=== PATIENT | female | born 1995 | race Caucasian/White ===

== ENCOUNTER → 2019-06-14 17:01 | Outpatient (CLI) | payer SELFPAY ==
[2019-06-14 12:46] VITALS: BMI 21.4
[2019-06-14 21:30] LABS: Chlamydia Trachomatis by PCR Negative (Negative); Neisserai gonorrhoeae by PCR Negative (Negative); Probe Check PASS; Sample Adequacy Control PASS; Specimen Processing Control PASS
[2019-07-10 15:40] LABS: HPV Reflexed? NOT INDICATED
== END ==
PROVIDERS: Referring Provider Obstetrics & Gynecology; Visit Provider Obstetrics & Gynecology
DX: Z34.80 Encounter for supervision of other normal pregnancy, unspecified trimester (principal); Z12.4 Encounter for screening for malignant neoplasm of cervix
CPT/HCPCS: 87086; 87491; 87591; 88175; G0145

== ENCOUNTER → 2019-08-08 09:57 | Outpatient (CLI) | payer SELFPAY ==
[2019-07-12 11:28] VITALS: BMI 21.4
[2019-08-08 11:14] LABS: Absolute Lymphocyte Count 1.37 X10^3/uL (0.83-4.51); Absolute Neutrophil Count 5.9 X10^3/uL (2.0-7.7); Basophil# 0.03 X10^3/uL; Basophil% 0.4 % (0-1); Eosinophil# 0.03 X10^3/uL; Eosinophils% 0.4 % (0-5); Hematocrit 33.2 % (37-47); Hemoglobin 10.6 g/dL (12.0-15.0); Lymphocyte # 1.37 X10^3/ul (4.0); Lymphocyte % 17.5 % (19-41); Mean Corp Hgb Conc 31.9 g/dL (32-36); Mean Corpuscular Hgb 27.5 pg (27.0-32.0); Mean Platelet Vol. 9.8 fl (6.2-12.0); Monocyte# 0.45 X10^3/uL; Monocyte% 5.7 % (0-10); NRBC Flagged by Analyzer 0 % (0-5); Neutrophil # 5.91 X10^3/uL (2.7-7.7); Neutrophil % 75.5 % (47-70); Platelet Count 277 K/mm3 (150-450); RBC Distribution Width SD 43.5 fl (35.1-43.9); Red Blood Count 3.86 M/mm3 (4.2-5.4); White Blood Count 7.8 K/mm3 (4.4-11.0)
[2019-08-08 12:28] LABS: HIV - WCH Non-Reactive (Nonreactive); Rubella IgG 174.1 IU/mL
[2019-08-09 02:20] LABS: Rapid Plasmin Reagin (RPR) NONREACTIVE (NONREACTIVE)
== END ==
PROVIDERS: Referring Provider Obstetrics & Gynecology; Visit Provider Obstetrics & Gynecology
DX: Z34.80 Encounter for supervision of other normal pregnancy, unspecified trimester (principal)
CPT/HCPCS: 36415; 85025; 86592; 86703; 86762; 86850; 86900; 86901

== ENCOUNTER → 2019-08-17 07:57 | Outpatient (CLI) | payer SELFPAY ==
[2019-07-12 11:28] VITALS: BMI 21.4
[2019-08-08 10:32] VITALS: BMI 21.4
--- NOTE | 2019-08-17 08:00 | US_ITS ---
STUDY: SECOND AND THIRD TRIMESTER OBSTETRICAL ULTRASOUND REASON FOR EXAM: Female, 24 years old . anatomy. LMP: March 27, 2019. TECHNIQUE: Transabdominal and Transvaginal TECHNICAL QUALITY: Adequate. PRIOR ULTRASOUND: None. FINDINGS: There is a single intrauterine fetus. The fetus is in a breech presentation. There is demonstrated cardiac activity with a heart rate of 138 bpm. There is a normal amniotic fluid volume. The largest amniotic fluid pocket measures 3.2 cm. The amniotic fluid index (ROMEO) is within normal limits. The placenta is posterior in location and is not low lying. There are Grade 0 placental changes. The cervix measures 3.3 cm in length. The bilateral adnexal regions are normal. BIOMETRY: BPD: 4.54 cm: 19 weeks, 5 days HC: 18.85 cm: 21 weeks, 1 days AC: 16.54 cm: 21 weeks, 4 days FL: 3.47 cm: 20 weeks, 6 days CI: 64.6% FL/BPD: 76.5% FL/HC: FL/AC: 21% HC/AC: 1.14 age by current US: 21 weeks, 1 days. ROSA by current US: December 27, 2019. Estimated weight: 407 grams, +/- 60 grams, 88 %. Age by LMP: 20 weeks, 2 days. ROSA by LMP: January 02, 2020. ANATOMY: Gender: Female Cranium: Normal lateral ventricles. 5 mm x 5 mm x 4 mm choroid plexus cyst. Normal cerebellum. Normal cisterna magna. Normal face, nose and lips. Chest: Normal 4-chamber heart. Abdomen/Pelvis: Normal diaphragm. Normal stomach. Normal abdominal wall. Normal cord insertion. Normal 3 vessel cord. Normal kidneys. Normal bladder. Spine: Normal cervical spine. Normal thoracic spine. Normal lumbar spine. Normal sacrum. Extremities: Normal bilateral upper extremities. Normal bilateral lower extremities. US/OB Anatomy Scan IMPRESSION: Single live intrauterine gestation with a mean gestational age of 21 weeks and 1 day. 5 mm x 5 mm x 4 mm choroid plexus cyst. Electronically Signed: Artur Gomes, at 8:27 EST , Service support ,
== END ==
PROVIDERS: Referring Provider Obstetrics & Gynecology; Visit Provider Obstetrics & Gynecology
DX: O44.42 Low lying placenta NOS or without hemorrhage, second trimester (principal); O99.352 Diseases of the nervous system complicating pregnancy, second trimester; G93.0 Cerebral cysts; Z3A.21 21 weeks gestation of pregnancy
CPT/HCPCS: 76805; 76817

== ENCOUNTER → 2019-10-18 13:07 | Outpatient (CLI) | payer OTHER, SELFPAY ==
[2019-10-04 11:34] VITALS: BMI 21.4
[2019-10-18 14:27] LABS: Absolute Lymphocyte Count 1.26 X10^3/uL (0.83-4.51); Absolute Neutrophil Count 6.4 X10^3/uL (2.0-7.7); Basophil# 0.02 X10^3/uL; Basophil% 0.2 % (0-1); Eosinophil# 0.04 X10^3/uL; Eosinophils% 0.5 % (0-5); Hematocrit 32.1 % (37-47); Hemoglobin 10.3 g/dL (12.0-15.0); Lymphocyte # 1.26 X10^3/ul (4.0); Lymphocyte % 15.3 % (19-41); Mean Corp Hgb Conc 32.1 g/dL (32-36); Mean Corpuscular Volume 84.3 fL (81-99); Monocyte# 0.48 X10^3/uL; Monocyte% 5.8 % (0-10); NRBC Flagged by Analyzer 0 % (0-5); Neutrophil # 6.35 X10^3/uL (2.7-7.7); Neutrophil % 77.1 % (47-70); Platelet Count 254 K/mm3 (150-450); RBC Distribution Width CV 13.4 % (11.6-14.6); RBC Distribution Width SD 41.6 fl (35.1-43.9); Red Blood Count 3.81 M/mm3 (4.2-5.4); White Blood Count 8.2 K/mm3 (4.4-11.0)
[2019-10-18 14:37] LABS: Glucose Challenge Gest 1H 50g 80 mg/dL (70-140)
[2019-10-18 15:17] LABS: Hepatitis B Surface Antigen Non-Reactive (Nonreactive)
== END ==
PROVIDERS: Referring Provider Nurse Practitioner Women's Health; Visit Provider Nurse Practitioner Women's Health
DX: Z34.80 Encounter for supervision of other normal pregnancy, unspecified trimester (principal)
CPT/HCPCS: 36415; 82950; 85025; 87340

== ENCOUNTER 2019-11-11 16:35 | Outpatient (CLI) | payer SELFPAY ==
[2019-11-09 11:49] VITALS: BMI 21.4
[2019-11-11 16:54] VITALS: BMI 27.8
--- NOTE | 2019-11-15 00:52 | OB.TRI.PN ---
Progress Notes Date of Service: 11/11/19 Progress Note: Patient presents for triage evaluation secondary to vaginal bleeding FHT: 140 Moderate variability reactive no decelerations category I tracing [place]: No regular contractions Assessment and plan: Vaginal bleeding reactive NST, reassuring maternal and status patient discharged to home to follow-up as scheduled. See problem list details for additional plan information. Multi Select Codes - Urinary/Genital Urinary/Genital CPT Codes: 28515-27 non-stress test Interp
== END 2019-11-11 18:00 | disposition home or self-care (01) ==
LOC: WPOUT 16:41 → WP 16:42
PROVIDERS: Visit Provider Obstetrics & Gynecology
DX: O46.90 Antepartum hemorrhage, unspecified, unspecified trimester (principal); Z3A.00 Weeks of gestation of pregnancy not specified
CPT/HCPCS: 59025; 59050; 99218; G0378

== ENCOUNTER → 2019-12-06 | Outpatient (CLI) | payer SELFPAY ==
[2019-12-06 11:26] VITALS: BMI 27.8
== END | disposition home or self-care (01) ==
LOC: LABSPEC 15:10
PROVIDERS: Referring Provider Nurse Practitioner Women's Health; Visit Provider Nurse Practitioner Women's Health
DX: Z34.80 Encounter for supervision of other normal pregnancy, unspecified trimester (principal)
CPT/HCPCS: 87081

== ENCOUNTER 2019-12-25 09:55 | Inpatient (IN) | payer SELFPAY ==
[2019-06-14 12:46] VITALS: BMI 21.4
[2019-12-21 11:15] VITALS: BMI 27.8
[2019-12-25] VITALS (16 sets, daily range): BP systolic 97–123; BP diastolic 49–72; PULSE 54–84; RESP 14–18; TEMP 36–37.1; O2SAT 98–100; BMI 26.5
--- NOTE | 2019-12-25 10:23 | HP.PCM_ITS ---
- Problem List (1) Anemia affecting Status: Acute Qualifiers: (2) Choroid plexus cyst of fetus Status: Acute (3) H/O section Status: Acute Comment: TOLAC vs RLTCS- scheduled for 12/25/2019 at Noon (4) Influenza vaccination declined Status: Acute (5) Status: Acute Qualifiers: Comment: Declines genetic, carrier and NTD (6) Rh negative status during Status: Acute Qualifiers: Comment: 28 weeks and prn; given 10/18/19 (7) Supervision of other normal Status: Acute Comment: PRR ROSA 01/01/2020 PC Dani Spouse Melanie History and Physical Date of Admission: 12/25/19 Intake Vital Signs 12/21/19 BMI 27.8 12/21/19 Height 5 ft 3 in 12/21/19 Weight: 148 lb 12/21/19 BMI 26.2 12/21/19 BP 104/66 Intake Visit Reasons: est ob 38w 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 Montse Harris MD) adopted: No household members: family housing: house number of children: 1 current occupational status: unemployed current occupational exposures/hazards: No history of recent travel: No sexually active: Yes Smoking Status: Never smoker second hand exposure: No alcohol intake: never substance use type: does not use kartik/yazidism: Zoroastrian seatbelt use: always do you feel safe at home: Yes additional social history: Thanx working Pregancy History 2 Elective abortions Hx Para 1 Spontaneous abortions Hx # Term Pregnancies 1 Ectopic pregnancies Hx # Pregnancies Multiple births # of living children 1 Past Pregnancies Del. Date Name GA/Weeks Outcome Route Bth Weight [facility]ant Gen [facility] 39 live - full term 6.1 Female spinal Tabatha Peña Delivery Date: On 06/14/19 @ 13:03 Neelam Esqueda decels; induced for SGA HPI est ob 38w: Details: WILBUR ROMERO is a 24 year old who presents for routine OB visit. OB Visit ROSA Calculator Estimated Delivery Date Method Current WG Current Estimate 01/01/20 LMP (Certain) 38w 3d Expected Delivery Route/Plan TOLAC if labor but otherwise RLTCS at 39 weeks patient counseled regarding risks/benefits of trial of labor versus repeat . ACOG and uptodate education given to patient. 83% chance of success. consent signed Labor Preferences- labor support person: Melanie pain management options preferred: epidural cut cord/dad catch: no : yes PP control planned: considering IUD discussed possible routes of delivery and associated risks: [] special requests: [] Specific Issue/Plans flu vaccine: declined tdap vaccine: declines rhogam: given LARC form signed: yes movement and labor precautions reviewed. Problem list reviewed and updated with the most current plan of care details and appropriate orders placed. Relevant counseling for the gestational age provided. Continue routine care and follow up unless otherwise noted in visit notes/problem list details Initial Weight: 121 lb Date EGA Weight BP Urine Prot Glucose FHR FuHt Pres Dilation Effaced St Visit Note 07/12/19 15w 2d 125 lb (+4 lb) 120/72 Negative Negative 150 no vb some cramping 08/08/19 19w 1d 131 lb (+10 lb) 104/60 Negative Negative 145 Feeling FM now. No VB, LOF 09/06/19 23w 2d 138 lb (+17 lb) 110/72 Negative Negative 135 no vb lof good fm no regular ctx 10/04/19 27w 2d 140 lb 6 oz (+19 lb 6 oz) 110/68 Negative Negative 137 26 NO VB, LOF. Good FM. 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 10/18/19 29w 2d 143 lb 2 oz (+22 lb 2 oz) 100/64 Negative Negative 158 29 Good FM. No VB, LOF. Rhogam, 28 wk labs, Hep B. Declines tdap. Considering repeat CS. Info given on IUD. LARC 11/09/19 32w 3d 144 lb (+23 lb) Negative Negative 150 32 SM- no vb lof good fm no regular ctx SM- no vb lof good fm no regular ctxdiscusseion about tolac patient wants to scehdule cs at 39 weeks, may consider if spontaneous labor prior but prefers RLTCS 11/23/19 34w 3d 144 lb (+23 lb) 112/80 Negative Negative 140 33 SM- no vb lof good fm no reg ctx 12/06/19 36w 2d 146 lb 6 oz (+25 lb 6 oz) 110/70 Negative Negative 148 36 MH-NO VB, LOF. Good FM. No CTX. Reviewed 12/24 cs, packet and soap given. Instruct to register. GBS 12/14/19 37w 3d 146 lb 6 oz (+25 lb 6 oz) 110/74 Negative Negative 145 37 Cephalic SM- no vb lof good fm no regular ctx 12/21/19 38w 3d 148 lb (+27 lb) 104/66 Negative Negative 140 37 Cephalic Sm- no vb lof good fm no regular ctx Notes Visit Date: 12/21/19 ??No visit notes to display Visit Date: 12/14/19 ??No visit notes to display Visit Date: 12/06/19 ??No visit notes to display Visit Date: 11/23/19 ??No visit notes to display Visit Date: 11/09/19 ??No visit notes to display Visit Date: 10/18/19 ??No visit notes to display Visit Date: 10/04/19 ??No visit notes to display Visit Date: 09/06/19 ??no vb lof good fm no regular ctx ??Montse Harris MD on 09/06/19 Visit Date: 08/08/19 ??Feeling FM now. No VB, LOF ??JANE Mejia on 08/08/19 Visit Date: 07/12/19 ??no vb some cramping ??Montse Harris MD on 07/12/19 ACOG First Trimester First Trimester: Desire for , Alcohol, Tobacco Cessation, Illicit/Recreational Drug/Substance Use, Intimate Partner Violence, Barriers to care, Unstable Housing, Communication Barriers, Environmental/Work Hazards, Anticipated Course of Care, Toxoplasmosis Precations, Use of Any medications, Sexual activity, Exercise, Dental Care, Sauna/Hot tub use, Seat Belt use, Childbirth classes/Hospital facilities, , Travel, Indications for US and Screening for Aneuploidy Second Trimester Second Trimester: Signs and Symptoms of Labor, Selecting a care provider, Reproductive Life Planning, Care Planning, Tobacco Cessation, Depression/Anxiety and Intimate Partner Violence Third Trimester Third Trimester: Pain Management Plans, Labor support person(s), Immediate Larc, Movement Monitoring and Infant Feeding Yes ; discussed Trial of Labor after Counseling or discussed Circumcision preference Diagnostics Diagnostics Diagnostics Blood Type A NEGATIVE 08/08/19 Antibody Screen NEGATIVE 08/08/19 Glucose 1 Hr 50 gm 80 mg/dL (70-140) 10/18/19 HIV 1&2 Antibody Non-Reactive (Nonreactive) 08/08/19 Rubella IgG Antibody 174.1 IU/mL 08/08/19 Hgb 10.3 g/dL (12.0-15.0) L 10/18/19 Hct 32.1 % (37-47) L 10/18/19 RPR NONREACTIVE (NONREACTIVE) 08/08/19 Details: HIV: Urine Culture: Sequential Screen: NIPT Screen: ROS Const Reports system reviewed and no additional complaints, except as docu Card Reports system reviewed and no additional complaints, except as docu Resp Reports system reviewed and no additional complaints, except as docu GI Reports system reviewed and no additional complaints, except as docu, Reports nausea Reports system reviewed and no additional complaints, except as docu Musc Reports system reviewed and no additional complaints, except as docu Exam Const General: cooperative, healthy appearing, comfortable, anxious HENOH Head: normal to inspection Nose: external nose normal Face and sinus: normal facial exam Neck Neck: normal visual inspection, full ROM, no lymphadenopathy Thyroid: thyroid normal Chest Chest palpation & inspection: normal inspection of the chest Resp Effort & Inspection: normal respiratory effort GI Inspection: normal to inspection Palpation: soft, other (gravid uterus) Other: vertex and appropriate size for gestational age Other: Cervical Exam: Extrem General: pedal edema Results POC Urinalysis 2 Dip (Clinic) Office Urine Glucose Negative Last Edit by Neelam Esqueda on 03/20/20 11:15 Office Urine Protein Negative Last Edit by Neelam Esqueda on 12/21/19 11:15 Assessment & Plan Problems 1. Anemia affecting in third trimester O99.013 2. Choroid plexus cyst of fetus 3. Rh negative status during in second trimester O26.892 4. Influenza vaccination declined Z28.21 5. H/O section Z98.891 6. Supervision of other normal Z34.80 7. 38 weeks gestation of Z3A.38 plan RLTCS if no spontaneous labor Orders Orders: POC Urinalysis 2 Dip (Clinic) Today Coding Level of Care Code OB Routine Diagnoses Anemia affecting in third trimester O99.013 ??Trimester: third trimester Choroid plexus cyst of fetus Rh negative status during in second trimester O26.892 ??Trimester: second trimester Influenza vaccination declined Z28.21 H/O section Z98.891 Supervision of other normal Z34.80 38 weeks gestation of Z3A.38 ??Weeks of gestation: 38 weeks
[2019-12-25] MEDS: Lactated Ringers 1,000 ML 999 ML IV (10:50)
[2019-12-25 10:59] LABS: Absolute Lymphocyte Count 1.27 X10^3/uL (0.83-4.51); Absolute Neutrophil Count 6.9 X10^3/uL (2.0-7.7); Basophil# 0.03 X10^3/uL; Basophil% 0.3 % (0-1); Eosinophil# 0.06 X10^3/uL; Eosinophils% 0.7 % (0-5); Hematocrit 35.1 % (37-47); Hemoglobin 11.1 g/dL (12.0-15.0); Lymphocyte # 1.27 X10^3/ul (4.0); Lymphocyte % 14.4 % (19-41); Mean Corp Hgb Conc 31.6 g/dL (32-36); Mean Corpuscular Hgb 26.5 pg (27.0-32.0); Mean Corpuscular Volume 83.8 fL (81-99); Mean Platelet Vol. 11.1 fl (6.2-12.0); Monocyte# 0.57 X10^3/uL; Monocyte% 6.4 % (0-10); NRBC Flagged by Analyzer 0 % (0-5); Neutrophil # 6.85 X10^3/uL (2.7-7.7); Neutrophil % 77.5 % (47-70); Platelet Count 175 K/mm3 (150-450); RBC Distribution Width CV 16.9 % (11.6-14.6); RBC Distribution Width SD 50.5 fl (35.1-43.9); Red Blood Count 4.19 M/mm3 (4.2-5.4); White Blood Count 8.8 K/mm3 (4.4-11.0)
[2019-12-25] MEDS: Lactated Ringers 1,000 ML 150 ML IV (11:45)
[2019-12-25] MEDS: Sodium Citrate/Citric Acid 30 ML UDC PO (12:00)
[2019-12-25] MEDS: Cefazolin 2 GM in 0.9% Normal Saline 100 ML IV (12:17)
--- NOTE | 2019-12-25 12:22 | PCM.OPRPT ---
Problem List (1) Anemia affecting Status: Acute Qualifiers: (2) Choroid plexus cyst of fetus Status: Acute (3) H/O section Status: Acute Comment: TOLAC vs RLTCS- scheduled for 12/25/2019 at Noon (4) Influenza vaccination declined Status: Acute (5) Status: Acute Qualifiers: Comment: Declines genetic, carrier and NTD (6) Rh negative status during Status: Acute Qualifiers: Comment: 28 weeks and prn; given 10/18/19 (7) Supervision of other normal Status: Acute Comment: PRR ROSA 01/01/2020 PC Dani Spouse Melanie Delivery Classification: Scheduled Final ROSA: 01/01/20 Gestational age: 39 Weeks and 0 Days chiropractic care: Megan Miles Type of Anesthesia:: Spinal Implants Used: NONE Date of Procedure: 12/25/19 Pre-Operative Diagnosis: previous Indications for : Repeat Elective Description of Procedure: The patient is a 24 yo @ 39 weeks presented for repeat . Spinal anesthesia was placed without difficulty. Morejon catheter was placed. The patient was placed in the dorsal supine position with leftward tilt. Patient was prepped and draped in the normal sterile fashion. Pfannenstiel skin incision was made with the scalpel and carried through to the underlying layer of fascia with the scalpel. Fascia was nicked in the midline and the incision extended laterally. The rectus bellies were dissected off superiorly and inferiorly with out complication both sharply and bluntly. The peritoneum was entered digitally. The incision was stretched and a low transverse uterine incision was made with the scalpel. The infant's head was delivered atraumatically followed by the anterior and posterior shoulders without complication the rest of the delivered. The cord was clamped and cut and the was handed off to awaiting nurse. The placenta was delivered spontaneously immediately following and was noted to be intact and have a three-vessel cord. The uterus was exteriorized cleared of all clots and debris, and the incision was closed in a double layer closure using #1 Monocryl. The ovaries and fallopian tubes were noted to be within normal limits. The uterus was returned to the maternal abdomen and gutters were cleared of all clots and debris. The peritoneum was closed with 3-0 Monocryl in a running fashion. Gloves were changed prior to fascial closure. Fascia was closed with 0 PDS in a running fashion. Subcutaneous tissue was copiously irrigated and the skin was closed with 3-0 Monocryl in a subcuticular fashion. Mepilex dressing was applied without complication. Patient was taken to recovery in stable condition. It was discussed with the patient that based on the clinical information obtained during this encounter, combined with her history, at this time I would recommend vaginal or for future deliveries if further pregnancies are desired. Amniotic Membrane Rupture Type: Artificial Amniotic Fluid Description: Clear Placenta Disposition: [facility] Delayed cord clamping: Yes Pt instructed on risks of surgery: Bleeding, Anesthesia Risks, Injury to surrounding structure(s) including bowel and bladder - Admit VTE Documentation VTE Present on Admission: No VTE Mechan Device Prophylaxis: SCD's Multi Select Codes - Urinary/Genital Urinary/Genital CPT Codes: 41355 Delivery [facility]
[2019-12-25] MEDS: Oxytocin 30 units/NS 500 ml 30 UNITS/500 ML IV.SOLN 167 UNITS IV (13:38)
[2019-12-25] MEDS: Lactated Ringers 1,000 ML 100 ML IV (16:28)
[2019-12-25] MEDS: Ketorolac 30 MG/ML Syringe IV (19:20)
[2019-12-26] MEDS: Ketorolac 30 MG/ML Syringe IV ×4 (01:00→18:36)
[2019-12-26] MEDS: 0.9% Saline Lock 10 ML Syringe IV ×3 (01:01→13:56)
[2019-12-26 01:30] VITALS: PULSE 83; RESP 18; O2SAT 98
[2019-12-26 03:32] VITALS: BP 97/53; PULSE 68; RESP 16; TEMP 36.7
[2019-12-26 05:44] LABS: Hematocrit 34.9 % (37-47); Mean Corp Hgb Conc 31.5 g/dL (32-36); Mean Corpuscular Hgb 26.7 pg (27.0-32.0); Mean Corpuscular Volume 84.7 fL (81-99); Platelet Count 157 K/mm3 (150-450); RBC Distribution Width CV 17.3 % (11.6-14.6); RBC Distribution Width SD 53.1 fl (35.1-43.9); Red Blood Count 4.12 M/mm3 (4.2-5.4); White Blood Count 9.7 K/mm3 (4.4-11.0)
--- NOTE | 2019-12-26 07:23 | PN.OBGYN_ITS ---
Subjective: doing well no complaints pain controlled no CP SOB N V ambulating well tolerating po lochia moderate, going well - Physical Exam Vitals/I&O's: Vital Signs Temp Pulse Resp BP Pulse Ox 98.1 F 68 16 97/53 L 98 12/26/19 03:32 12/26/19 03:32 12/26/19 03:32 12/26/19 03:32 12/26/19 01:30 Oxygen Delivery Method Room Air Weight: 149 lb 12.8 oz Body Mass Index (BMI) 26.5 Intake and Output for Last 24 Hours 12/24/19 12/25/19 12/26/19 23:59 23:59 23:59 Intake Total 2321.70 / 2321.70 Output Total 2650 / 2650 900 / 900 Balance -328.30 / -328.30 -900 / -900 General: Alert, Oriented x3 Laboratory Results 12/25/19 10:50: WBC 8.8, RBC 4.19 L, Hgb 11.1 L, Hct 35.1 L, MCV 83.8, MCH 26.5 L, MCHC 31.6 L, RDW Std Deviation 50.5 H, RDW Coeff of [place] 16.9 H, Plt Count 175, MPV 11.1, Immature Gran % (Auto) 0.700, Neut % (Auto) 77.5 H, Lymph % (Auto) 14.4 L, [place] % (Auto) 6.4, Eos % (Auto) 0.7, Baso % (Auto) 0.3, Absolute Neuts (auto) 6.9, Absolute Lymphs (auto) 1.27, Nucleated RBC % 0 12/25/19 10:50: Blood Type A NEGATIVE, Antibody Screen NEGATIVE 12/26/19 05:38: WBC 9.7, RBC 4.12 L, Hgb 11.0 L, Hct 34.9 L, MCV 84.7, MCH 26.7 L, MCHC 31.5 L, RDW Std Deviation 53.1 H, RDW Coeff of [place] 17.3 H, Plt Count 157, MPV 11.0 Current Medications Acetaminophen (Tylenol) 1,000 mg PO Q8H PRN PRN Reason: Pain Score 1-3/10 Bisacodyl (Dulcolax) 10 mg RECTAL UD PRN PRN Reason: If no BM Diphenhydramine HCl (Benadryl) 25 mg PO Q6H PRN PRN PRN Reason: ITCHING Stop: 12/26/19 14:14 Hydrocortisone (Hytone) 1 applic TOPICAL TID PRN PRN; Protocol PRN Reason: Discomfort Naloxone HCl 4 mg/ Dextrose 504 mls @ 0 mls/hr IV .Q0M PRN; Protocol PRN Reason: Respiratory depression Ketorolac Tromethamine (Toradol (Bkc)) 30 mg IV Q6H ELIECER Stop: 12/27/19 13:01 Last Admin: 12/26/19 06:33 Dose: 30 mg Documented by: Methylergonovine Maleate (Methergine) 0.2 mg IM X1 PRN PRN Reason: Uterine Atony Naloxone HCl (Narcan) 0.02 mg IV Q1M PRN PRN Reason: RR <10 and pt unresponsive Naproxen (Naprosyn) 250 - 500 mg PO Q8H PRN PRN PRN Reason: Pain Score 1-3/10 Ondansetron HCl (Zofran) 4 mg IV Q4H PRN PRN PRN Reason: Nausea Oxycodone HCl (Oxyir) 5 - 10 mg PO Q4H PRN PRN PRN Reason: Pain Score 4-10/10 Prochlorperazine Edisylate (Compazine Iv) 10 mg IV Q6H PRN PRN PRN Reason: NAUSEA Senna/Docusate Sodium (Senokot-S, Lelo-Colace) 0 tablet PO DAILY PRN PRN Reason: Constipation Simethicone (Mylicon) 80 mg PO PCHS PRN PRN Reason: Indigestion/stomach pain Sodium Chloride () 5 - 15 ml IV UD PRN PRN Reason: SALINE FLUSH Last Admin: 12/26/19 06:33 Dose: 10 ml Documented by: Medical Necessity - Tobacco Use Smoking Status: Never smoker Assessment/Plan All Active Problems (Last Reviewed 12/21/19 @ 11:12 by Neelam Esqueda) Anemia affecting (Acute) Choroid plexus cyst of fetus (Acute) Rh negative status during (Acute) Influenza vaccination declined (Acute) H/O section (Acute) Supervision of other normal (Acute) (Acute) s/p LTCS PPD # 1 1. routine post care 2. breast feeding- support given 3. rh positive 4. rubella immune
[2019-12-26 08:17] VITALS: BP 105/67; PULSE 79; RESP 16; TEMP 37.1; O2SAT 96
[2019-12-26] MEDS: Acetaminophen 500 MG Tablet 1000 MG PO ×2 (10:02→21:07)
[2019-12-26 13:53] VITALS: BP 109/64; PULSE 77; RESP 16; TEMP 37.2; O2SAT 97
[2019-12-26 20:55] VITALS: BP 113/71; PULSE 88; RESP 16; TEMP 36.7
[2019-12-27] MEDS: 0.9% Saline Lock 10 ML Syringe IV ×2 (00:58→06:36)
[2019-12-27] MEDS: Ketorolac 30 MG/ML Syringe IV ×2 (00:58→06:35)
[2019-12-27 01:05] VITALS: BP 107/67; PULSE 76; RESP 14; TEMP 36.6
--- NOTE | 2019-12-27 07:56 | PCM.PN.OB ---
Subjective: Doing well, no complaints.Pain controlled. Denies CP, SOB, N,V. Ambulating well, tolerating po. Lochia moderate, going well. - Physical Exam Vitals/I&O's: Vital Signs Temp Pulse Resp BP Pulse Ox 98 F 76 14 107/67 97 12/27/19 01:05 12/27/19 01:05 12/27/19 01:05 12/27/19 01:05 12/26/19 13:53 Oxygen Delivery Method Room Air Weight: 149 lb 12.8 oz Body Mass Index (BMI) 26.5 Intake and Output for Last 24 Hours 12/25/19 12/26/19 12/27/19 23:59 23:59 23:59 Intake Total 2321.70 / 2321.70 Output Total 2650 / 2650 900 / 900 Balance -328.30 / -328.30 -900 / -900 General: Alert, Oriented x3 Abdomen: Soft, Non-Distended, - - FF below U. Dressing dry and intact Current Medications Acetaminophen (Tylenol) 1,000 mg PO Q8H PRN PRN Reason: Pain Score 1-3/10 Last Admin: 12/26/19 21:07 Dose: 1,000 mg Documented by: Bisacodyl (Dulcolax) 10 mg RECTAL UD PRN PRN Reason: If no BM Hydrocortisone (Hytone) 1 applic TOPICAL TID PRN PRN; Protocol PRN Reason: Discomfort Naloxone HCl 4 mg/ Dextrose 504 mls @ 0 mls/hr IV .Q0M PRN; Protocol PRN Reason: Respiratory depression Ketorolac Tromethamine (Toradol (Bkc)) 30 mg IV Q6H ELIECER Stop: 12/27/19 13:01 Last Admin: 12/27/19 06:35 Dose: 30 mg Documented by: Methylergonovine Maleate (Methergine) 0.2 mg IM X1 PRN PRN Reason: Uterine Atony Naloxone HCl (Narcan) 0.02 mg IV Q1M PRN PRN Reason: RR <10 and pt unresponsive Naproxen (Naprosyn) 250 - 500 mg PO Q8H PRN PRN PRN Reason: Pain Score 1-3/10 Ondansetron HCl (Zofran) 4 mg IV Q4H PRN PRN PRN Reason: Nausea Oxycodone HCl (Oxyir) 5 - 10 mg PO Q4H PRN PRN PRN Reason: Pain Score 4-10/10 Prochlorperazine Edisylate (Compazine Iv) 10 mg IV Q6H PRN PRN PRN Reason: NAUSEA Senna/Docusate Sodium (Senokot-S, Lelo-Colace) 0 tablet PO DAILY PRN PRN Reason: Constipation Simethicone (Mylicon) 80 mg PO PCHS PRN PRN Reason: Indigestion/stomach pain Sodium Chloride () 5 - 15 ml IV UD PRN PRN Reason: SALINE FLUSH Last Admin: 12/27/19 06:36 Dose: 10 ml Documented by: Medical Necessity - Tobacco Use Smoking Status: Never smoker Assessment/Plan All Active Problems (Last Reviewed 12/21/19 @ 11:12 by Neelam Esqueda) Anemia affecting (Acute) Choroid plexus cyst of fetus (Acute) Rh negative status during (Acute) Influenza vaccination declined (Acute) H/O section (Acute) Supervision of other normal (Acute) (Acute) s/p LTCS PPD # 2 1. routine post care 2. breast feeding- support given 3. rh negative 4. rubella immune 5. home today
--- NOTE | 2019-12-27 08:00 | DCINST_ITS ---
Additional Instructions: If you experience any of the following, contact your healthcare provider. * Bleeding that soaks a pad every hour for 2 hours * Fever 100.4 or higher * Unrelieved incision or abdominal pain * Swelling, redness, discharge or bleeding from your incision or episiotomy site * Your incision begins to separate * Problems urinating (including inability to urinate or burning while urinating). * Visual changes * Severe headache * Flu-like symptoms * Pain or redness in one of both of your breasts * Pain, warmth, tenderness or swelling in your legs, especially the calf area * Frequent nausea and vomiting * Symptoms of depression or anxiety If you experience any of the following, call 911 or go to the nearest Emergency Room. * Chest pain * Problems breathing * Seizure activity * Partial or complete paralysis of a body part, slurred speech, weakness or drooping of the face, or a sudden inability to walk or hold your balance Allergies/Adverse Reactions: Allergies No Known Allergies Allergy (Verified 12/21/19 11:11) Medications to take at Discharge vitamin#30 30 mg iron-10 mg iron-folic acid 1 mg-omg3 capsule 1 tab PO DAILY cap 07/12/19 Naproxen [Naprosyn] 500 mg PO BID PRN PRN #60 tab 12/27/19 Oxycodone HCl/Acetaminophen [Percocet 5/325] 1 - 2 tablet PO Q4H PRN PRN 7 Days #28 tablet 12/27/19 The following prescriptions were given: Naproxen [Naprosyn] 500 mg PO BID PRN PRN #60 tab PRN Reason: Pain Transmission Status: Pending to [facility] Oxycodone HCl/Acetaminophen [Percocet 5/325] 1 - 2 tablet PO Q4H PRN PRN 7 Days #28 tablet PRN Reason: Pain Transmission Status: Sent to [facility] Follow-Up: Call to make an appointment with your doctor for an incision check in 1-2 weeks. You will also need a 6 week post- follow up appointment. Test results from this visit will be discussed in further detail at your follow- up appointment, if applicable. Primary Care Physician: Care Physician,No Primary [Primary Care Provider] -
--- NOTE | 2019-12-27 08:00 | PCM.DCCSEC ---
Additional Instructions: If you experience any of the following, contact your healthcare provider. Bleeding that soaks a pad every hour for 2 hours Fever 100.4 or higher Unrelieved incision or abdominal pain Swelling, redness, discharge or bleeding from your incision or episiotomy site Your incision begins to separate Problems urinating (including inability to urinate or burning while urinating). Visual changes Severe headache Flu-like symptoms Pain or redness in one of both of your breasts Pain, warmth, tenderness or swelling in your legs, especially the calf area Frequent nausea and vomiting Symptoms of depression or anxiety If you experience any of the following, call 911 or go to the nearest Emergency Room. Chest pain Problems breathing Seizure activity Partial or complete paralysis of a body part, slurred speech, weakness or drooping of the face, or a sudden inability to walk or hold your balance Allergies/Adverse Reactions: Allergies No Known Allergies Allergy (Verified 12/21/19 11:11) Medications to take at Discharge vitamin#30 30 mg iron-10 mg iron-folic acid 1 mg-omg3 capsule 1 tab PO DAILY cap 07/12/19 Naproxen [Naprosyn] 500 mg PO BID PRN PRN #60 tab 12/27/19 Oxycodone HCl/Acetaminophen [Percocet 5/325] 1 - 2 tablet PO Q4H PRN PRN 7 Days #28 tablet 12/27/19 The following prescriptions were given: Naproxen [Naprosyn] 500 mg PO BID PRN PRN #60 tab PRN Reason: Pain Transmission Status: Pending to [facility] Oxycodone HCl/Acetaminophen [Percocet 5/325] 1 - 2 tablet PO Q4H PRN PRN 7 Days #28 tablet PRN Reason: Pain Transmission Status: Sent to [facility] Follow-Up: Call to make an appointment with your doctor for an incision check in 1-2 weeks. You will also need a 6 week post- follow up appointment. Test results from this visit will be discussed in further detail at your follow-up appointment, if applicable. Primary Care Physician: Care Physician,No Primary [Primary Care Provider] -
[2019-12-27 09:30] VITALS: BP 100/59; PULSE 77; RESP 16; TEMP 36.8
[2019-12-27] MEDS: Acetaminophen 500 MG Tablet 1000 MG PO (11:45)
== END 2019-12-27 12:10 | disposition home or self-care (01) | DRG 787 ==
PROVIDERS: Admitting Provider Obstetrics & Gynecology; Referring Provider Obstetrics & Gynecology; Visit Provider Obstetrics & Gynecology
PROC: 10D00Z1 Extraction of Products of Conception, Low, Open Approach (ICD-10-PCS; CPT 59514; principal; 2019-12-25 11:45)
DX: O34.211 Maternal care for low transverse scar from previous cesarean delivery (principal); O36.0130 Maternal care for anti-D [Rh] antibodies, third trimester, not applicable or unspecified; O99.02 Anemia complicating childbirth; D64.9 Anemia, unspecified; O35.8XX0 Maternal care for other (suspected) fetal abnormality and damage, not applicable or unspecified; Z28.21 Immunization not carried out because of patient refusal; Z3A.39 39 weeks gestation of pregnancy; Z37.0 Single live birth
CPT/HCPCS: 85025; 85027; 86850; 86900; 86901; 99218; J7120; A4216; G0378; J2405

== ENCOUNTER → 2020-04-03 | Outpatient (CLI) | payer SELFPAY ==
[2020-04-03 14:47] VITALS: BMI 22.6
== END | disposition home or self-care (01) ==
LOC: LABSPEC 16:47
PROVIDERS: Referring Provider Nurse Practitioner Women's Health; Visit Provider Nurse Practitioner Women's Health
DX: R30.0 Dysuria (principal)
CPT/HCPCS: 87086; 87088; 87186

== ENCOUNTER → 2020-04-08 12:13 | Outpatient (CLI) | payer SELFPAY ==
[2020-04-03 14:47] VITALS: BMI 22.6
--- NOTE | 2020-04-08 12:30 | US_ITS ---
STUDY: ULTRASOUND OF THE FEMALE PELVIS - COMPLETE REASON FOR EXAM: Female, 24 years old. M Menorrhagia US - Pelvic, Tvag -- BLEEDING X 15 WEEKS AFTER C SECTION DELIVERY LMP: Unknown TECHNIQUE: Transabdominal and Transvaginal TECHNICAL QUALITY: Adequate. COMPARISON: None. FINDINGS: The uterus is anteverted and is in a midline position. The uterus measures 9.8 cm x 6.6 cm x 4.5 cm. Normal uterine cervix. The endometrium measures 8.0 mm in thickness, and is hyperechoic. There is no demonstrated endometrial mass. There is no demonstrated myometrial mass. I.U.D. - The patient does not have an I.U.D. The right ovary is visualized. The right ovary measures 3.8 cm x 3 cm x 2.6 cm. There is no right ovarian cyst or ovarian mass. There is no visualized right adnexal mass or complex lesion. There is normal arterial and normal venous vascularity. The left ovary is visualized. The left ovary measures 3 cm x 3 cm x 1.6 cm. There is no left ovarian cyst or ovarian mass. There is no visualized left adnexal mass or complex lesion. There is normal arterial and normal venous vascularity. There is no fluid in the cul-de-sac. Prominent vascularity in the left adnexal region. US/Pelvic (Non ) IMPRESSION: Normal female pelvis. Electronically Signed: Artur Gomes, at 15:15 EDT , Service support ,
--- NOTE | 2020-04-08 12:30 | US_ITS ---
STUDY: ULTRASOUND OF THE FEMALE PELVIS - COMPLETE REASON FOR EXAM: Female, 24 years old. M Menorrhagia US - Pelvic, Tvag -- BLEEDING X 15 WEEKS AFTER C SECTION DELIVERY LMP: Unknown TECHNIQUE: Transabdominal and Transvaginal TECHNICAL QUALITY: Adequate. COMPARISON: None. FINDINGS: The uterus is anteverted and is in a midline position. The uterus measures 9.8 cm x 6.6 cm x 4.5 cm. Normal uterine cervix. The endometrium measures 8.0 mm in thickness, and is hyperechoic. There is no demonstrated endometrial mass. There is no demonstrated myometrial mass. I.U.D. - The patient does not have an I.U.D. The right ovary is visualized. The right ovary measures 3.8 cm x 3 cm x 2.6 cm. There is no right ovarian cyst or ovarian mass. There is no visualized right adnexal mass or complex lesion. There is normal arterial and normal venous vascularity. The left ovary is visualized. The left ovary measures 3 cm x 3 cm x 1.6 cm. There is no left ovarian cyst or ovarian mass. There is no visualized left adnexal mass or complex lesion. There is normal arterial and normal venous vascularity. There is no fluid in the cul-de-sac. Prominent vascularity in the left adnexal region. US/Transvaginal Non- IMPRESSION: Normal female pelvis. Electronically Signed: Artur Gomes, at 15:15 EDT , Service support ,
[2020-04-08 13:43] LABS: Absolute Lymphocyte Count 1.54 X10^3/uL (0.83-4.51); Absolute Neutrophil Count 2.6 X10^3/uL (2.0-7.7); Basophil# 0.04 X10^3/uL; Basophil% 0.9 % (0-1); Eosinophil# 0.04 X10^3/uL; Eosinophils% 0.9 % (0-5); Hematocrit 38.4 % (37-47); Hemoglobin 12.1 g/dL (12.0-15.0); Lymphocyte # 1.54 X10^3/ul (4.0); Lymphocyte % 33.2 % (19-41); Mean Corp Hgb Conc 31.5 g/dL (32-36); Mean Corpuscular Hgb 27.8 pg (27.0-32.0); Mean Corpuscular Volume 88.3 fL (81-99); Monocyte# 0.45 X10^3/uL; Monocyte% 9.7 % (0-10); NRBC Flagged by Analyzer 0 % (0-5); Neutrophil # 2.55 X10^3/uL (2.7-7.7); Neutrophil % 54.9 % (47-70); Platelet Count 297 K/mm3 (150-450); RBC Distribution Width CV 12.9 % (11.6-14.6); RBC Distribution Width SD 40.8 fl (35.1-43.9); Red Blood Count 4.35 M/mm3 (4.2-5.4); White Blood Count 4.6 K/mm3 (4.4-11.0)
[2020-04-08 14:12] LABS: hCG Titer Quant., Serum < 1 mIU/mL (1-3)
[2020-04-08 14:18] LABS: T4 Free Direct 0.92 ng/dL (0.76-1.46); Thyroid Stim Hormone (TSH) 1.73 uIU/mL (0.358-3.74)
== END ==
PROVIDERS: Referring Provider Obstetrics & Gynecology; Visit Provider Obstetrics & Gynecology
DX: N94.6 Dysmenorrhea, unspecified (principal); N92.0 Excessive and frequent menstruation with regular cycle
CPT/HCPCS: 36415; 76830; 76856; 84439; 84443; 84702; 85025

== ENCOUNTER → 2023-03-10 | Outpatient (CLI) | payer OTHER, SELFPAY ==
[2023-03-10 15:54] LABS: Absolute Lymphocyte Count 1.45 X10^3/uL (0.83-4.51); Absolute Neutrophil Count 4.8 X10^3/uL (2.0-7.7); Basophil# 0.04 X10^3/uL; Basophil% 0.6 % (0-1); Eosinophil# 0.08 X10^3/uL; Eosinophils% 1.2 % (0-5); Hematocrit 35.5 % (37-47); Hemoglobin 11.7 g/dL (12.0-15.0); Lymphocyte # 1.45 X10^3/ul (0.83-4.51); Lymphocyte % 21.5 % (19-41); Mean Corpuscular Hgb 27.8 pg (27.0-32.0); Mean Corpuscular Volume 84.3 fL (81-99); Mean Platelet Vol. 9.7 fl (6.2-12.0); Monocyte# 0.33 X10^3/uL; Monocyte% 4.9 % (0-10); NRBC Flagged by Analyzer 0 % (0-5); Neutrophil # 4.83 X10^3/uL (2.7-7.7); Neutrophil % 71.5 % (47-70); Platelet Count 250 K/mm3 (150-450); RBC Distribution Width CV 13.5 % (11.6-14.6); RBC Distribution Width SD 41.4 fl (35.1-43.9); Red Blood Count 4.21 M/mm3 (4.2-5.4); White Blood Count 6.8 K/mm3 (4.4-11.0)
[2023-03-10 16:41] LABS: NATERA MAILED SPECIMEN
[2023-03-10 17:34] LABS: HIV - WCH Non-Reactive (Nonreactive); Hepatitis B Surface Antigen Non-Reactive (Nonreactive); Hepatitis C Antibody Non-Reactive (Nonreactive); Rubella IgG Reactive (Nonreactive); Syphilis Antibodies Non-reactive
[2023-03-14 20:07] LABS: Chlamydia By Nucleic Acid AMP Negative (Negative); Gonococcus By Nucleic Acid AMP Negative (Negative)
[2023-03-15 18:12] LABS: HPV Reflexed? NOT INDICATED
== END | disposition home or self-care (01) ==
PROVIDERS: Referring Provider Obstetrics & Gynecology; Visit Provider Obstetrics & Gynecology
DX: Z34.81 Encounter for supervision of other normal pregnancy, first trimester (principal); Z34.90 Encounter for supervision of normal pregnancy, unspecified, unspecified trimester
CPT/HCPCS: 36415; 85025; 86703; 86762; 86780; 86803; 86850; 86900; 86901; 87086; 87088; 87340; 87491; 87591; 88175; G0145

== ENCOUNTER → 2023-05-05 | Outpatient (CLI) | payer SELFPAY, OTHER ==
--- NOTE | 2023-05-05 08:04 | US_ITS ---
STUDY: SECOND AND THIRD TRIMESTER OBSTETRICAL ULTRASOUND REASON FOR EXAM: Female, 27 years old anatomy LMP: December 19, 2022. TECHNIQUE: Transabdominal and Transvaginal TECHNICAL QUALITY: Adequate. PRIOR ULTRASOUND: None. FINDINGS: There is a single intrauterine fetus. The fetus is in a breech presentation. There is demonstrated cardiac activity with a heart rate of 137 bpm. There is a normal amniotic fluid volume. The largest amniotic fluid pocket measures 3 cm x 6.4 cm. The amniotic fluid index (ROMEO) is within normal limits. The placenta is anterior in location and is not low lying. There are Grade 0 placental changes. The cervix measures 4.1 cm in length. The bilateral adnexal regions are normal. BIOMETRY: BPD: 4.2 cm: 18 weeks, 5 days HC: 15.7 cm: 18 weeks, 4 days AC: 13.3 cm: 18 weeks, 6 days FL: 2.8 cm: 18 weeks, 4 days CI: 75% FL/BPD: 67% FL/HC: FL/AC: 21% HC/AC: 1.18 age by current US: 18 weeks, 5 days. ROSA by current US: October 01, 2023. Estimated weight: 255 grams, +/- 38 grams, 10.2 %. Age by LMP: 19 weeks, 4 days. ROSA by LMP: September 25, 2023. ANATOMY: Gender: Cranium: Normal lateral ventricles. Bilateral choroid plexus cysts. Normal cerebellum. Normal cisterna magna. Normal face, nose and lips. Chest: Normal 4-chamber heart. Abdomen/Pelvis: Normal diaphragm. Normal stomach. Normal abdominal wall. Normal cord insertion. Normal 3 vessel cord. Normal kidneys. Normal bladder. Spine: Normal cervical spine. Normal thoracic spine. Normal lumbar spine. Normal sacrum. Extremities: Normal bilateral upper extremities. Normal bilateral lower extremities. IMPRESSION: Single live uterine gestation with mean gestational age of 18 weeks and 5 days. Bilateral corpus plexus cysts. Electronically Signed: Artur Gomes MD at 15:12 EDT , STUDY: FIRST TRIMESTER OBSTETRICAL ULTRASOUND REASON FOR EXAM: Female, 27 years old. Cervical length measurement. LMP: December 19, 2022 TECHNIQUE: Transvaginal TECHNICAL QUALITY: Adequate. PRIOR ULTRASOUND: None. FINDINGS: Cervical length measures 4.1 cm cyst. US/OB Anatomy Scan IMPRESSION: Cervical length measures 4.1 cm. Electronically Signed: Artur Gomes MD at 15:13 EDT ,
== END | disposition home or self-care (01) ==
LOC: OPUS 08:02
PROVIDERS: Referring Provider Obstetrics & Gynecology; Visit Provider Obstetrics & Gynecology
DX: Z34.90 Encounter for supervision of normal pregnancy, unspecified, unspecified trimester (principal)
CPT/HCPCS: 76805; 76817

== ENCOUNTER → 2023-06-27 | Outpatient (CLI) | payer OTHER, SELFPAY ==
[2023-06-27 10:47] LABS: Absolute Lymphocyte Count 1.21 X10^3/uL (0.83-4.51); Absolute Neutrophil Count 6.1 X10^3/uL (2.0-7.7); Basophil# 0.02 X10^3/uL; Basophil% 0.3 % (0-1); Eosinophil# 0.07 X10^3/uL; Eosinophils% 0.9 % (0-5); Hematocrit 31.3 % (37-47); Hemoglobin 9.6 g/dL (12.0-15.0); Lymphocyte # 1.21 X10^3/ul (0.83-4.51); Lymphocyte % 15.4 % (19-41); Mean Corp Hgb Conc 30.7 g/dL (32-36); Mean Corpuscular Hgb 26.9 pg (27.0-32.0); Mean Corpuscular Volume 87.7 fL (81-99); Mean Platelet Vol. 9.6 fl (6.2-12.0); Monocyte# 0.37 X10^3/uL; Monocyte% 4.7 % (0-10); NRBC Flagged by Analyzer 0 % (0-5); Neutrophil # 6.14 X10^3/uL (2.7-7.7); Neutrophil % 77.8 % (47-70); Platelet Count 264 K/mm3 (150-450); RBC Distribution Width SD 41.6 fl (35.1-43.9); Red Blood Count 3.57 M/mm3 (4.2-5.4); White Blood Count 7.9 K/mm3 (4.4-11.0)
[2023-06-27 10:56] LABS: Glucose Challenge Gest 1H 50g 90 mg/dL (70-140)
[2023-06-27 11:28] LABS: HIV - WCH Non-Reactive (Nonreactive); Syphilis Antibodies Non-reactive
== END | disposition home or self-care (01) ==
LOC: PAVLAB 10:06
PROVIDERS: Referring Provider Registered Nurse; Visit Provider Registered Nurse
DX: O26.899 Other specified pregnancy related conditions, unspecified trimester (principal); Z67.91 Unspecified blood type, Rh negative; Z98.891 History of uterine scar from previous surgery; Z3A.00 Weeks of gestation of pregnancy not specified
CPT/HCPCS: 36415; 82950; 85025; 86703; 86780

== ENCOUNTER → 2023-07-04 | Outpatient (CLI) | payer OTHER, SELFPAY ==
[2023-07-04 14:17] LABS: Absolute Lymphocyte Count 1.31 X10^3/uL (0.83-4.51); Absolute Neutrophil Count 7.3 X10^3/uL (2.0-7.7); Basophil# 0.04 X10^3/uL; Basophil% 0.4 % (0-1); Eosinophil# 0.06 X10^3/uL; Eosinophils% 0.6 % (0-5); Hematocrit 29.6 % (37-47); Hemoglobin 9.1 g/dL (12.0-15.0); Lymphocyte # 1.31 X10^3/ul (0.83-4.51); Lymphocyte % 14.1 % (19-41); Mean Corp Hgb Conc 30.7 g/dL (32-36); Mean Corpuscular Hgb 26.3 pg (27.0-32.0); Mean Corpuscular Volume 85.5 fL (81-99); Mean Platelet Vol. 9.4 fl (6.2-12.0); Monocyte# 0.47 X10^3/uL; Monocyte% 5.1 % (0-10); NRBC Flagged by Analyzer 0 % (0-5); Neutrophil # 7.34 X10^3/uL (2.7-7.7); Neutrophil % 79.2 % (47-70); Platelet Count 262 K/mm3 (150-450); RBC Distribution Width CV 13.2 % (11.6-14.6); RBC Distribution Width SD 40.5 fl (35.1-43.9); Red Blood Count 3.46 M/mm3 (4.2-5.4); White Blood Count 9.3 K/mm3 (4.4-11.0)
== END | disposition home or self-care (01) ==
LOC: PAVLAB 14:03
PROVIDERS: Referring Provider Registered Nurse; Visit Provider Registered Nurse
DX: O99.019 Anemia complicating pregnancy, unspecified trimester (principal); Z3A.00 Weeks of gestation of pregnancy not specified
CPT/HCPCS: 36415; 85025; 86850; 86900; 86901

== ENCOUNTER → 2023-08-18 | Outpatient (CLI) | payer OTHER, SELFPAY ==
[2023-08-18 14:55] LABS: Absolute Lymphocyte Count 1.02 X10^3/uL (0.83-4.51); Absolute Neutrophil Count 6.7 X10^3/uL (2.0-7.7); Basophil# 0.05 X10^3/uL; Basophil% 0.6 % (0-1); Eosinophils% 1.2 % (0-5); Hematocrit 28.4 % (37-47); Hemoglobin 8.6 g/dL (12.0-15.0); Lymphocyte # 1.02 X10^3/ul (0.83-4.51); Lymphocyte % 11.9 % (19-41); Mean Corp Hgb Conc 30.3 g/dL (32-36); Mean Corpuscular Hgb 24.6 pg (27.0-32.0); Mean Corpuscular Volume 81.4 fL (81-99); Mean Platelet Vol. 9.6 fl (6.2-12.0); NRBC Flagged by Analyzer 0 % (0-5); Neutrophil # 6.68 X10^3/uL (2.7-7.7); Platelet Count 229 K/mm3 (150-450); RBC Distribution Width CV 14.2 % (11.6-14.6); RBC Distribution Width SD 41.8 fl (35.1-43.9); Red Blood Count 3.49 M/mm3 (4.2-5.4); White Blood Count 8.6 K/mm3 (4.4-11.0)
== END | disposition home or self-care (01) ==
LOC: PAVLAB 14:40
PROVIDERS: Referring Provider Obstetrics & Gynecology; Visit Provider Obstetrics & Gynecology
DX: O99.019 Anemia complicating pregnancy, unspecified trimester (principal); Z3A.00 Weeks of gestation of pregnancy not specified
CPT/HCPCS: 36415; 85025

== ENCOUNTER → 2023-08-20 | Outpatient (CLI) | payer OTHER, SELFPAY ==
[2023-08-20 10:13] LABS: Ferritin 5 ng/mL (8-252); Iron 22 ug/dL (50-170); Iron Binding Capacity,Total 535 ug/dL (250-450); PERCENT IRON SATURATION 4.1 % (15.0-55.0)
== END | disposition home or self-care (01) ==
LOC: LAB 08:52
PROVIDERS: Referring Provider Obstetrics & Gynecology; Visit Provider Obstetrics & Gynecology
DX: O99.019 Anemia complicating pregnancy, unspecified trimester (principal); Z3A.00 Weeks of gestation of pregnancy not specified
CPT/HCPCS: 36415; 82728; 83540; 83550

== ENCOUNTER 2023-09-01 11:45 | Outpatient (CLI) | payer OTHER, SELFPAY ==
[2023-09-01] MEDS: 0.9% NaCl Peripheral Flush Adult/Peds IV (12:04)
[2023-09-01] MEDS: Iron Sucrose Complex 300 MG in 0.9% Normal Saline (250mL Bag) 250 ML 177 MG IV (12:04)
[2023-09-01] MEDS: 0.9% NaCl IVPB Med Flush (250 mL) 15 ML IV (12:04)
[2023-09-01 12:05] VITALS: BP 97/60; PULSE 90; RESP 16; TEMP 36.6; O2SAT 97; BMI 26.2
[2023-09-01 14:47] VITALS: BP 101/62; PULSE 95; RESP 16
== END 2023-09-01 11:46 | disposition home or self-care (01) ==
PROVIDERS: Referring Provider Nurse Practitioner Women's Health; Visit Provider Nurse Practitioner Women's Health
DX: O99.019 Anemia complicating pregnancy, unspecified trimester (principal); Z3A.00 Weeks of gestation of pregnancy not specified
CPT/HCPCS: 96365; 96366; 87081; J1756; J7050; A4216

== ENCOUNTER 2023-09-08 11:31 | Outpatient (CLI) | payer OTHER, SELFPAY ==
[2023-09-08 10:47] VITALS: BP 100/60; PULSE 78; RESP 16; TEMP 36.2; O2SAT 98; BMI 26.4
[2023-09-08] MEDS: 0.9% NaCl Peripheral Flush Adult/Peds IV (11:49)
[2023-09-08] MEDS: 0.9% NaCl IVPB Med Flush (250 mL) 15 ML IV (11:56)
[2023-09-08] MEDS: Iron Sucrose Complex 300 MG in 0.9% Normal Saline (250mL Bag) 250 ML 177 MG IV (11:56)
[2023-09-08 13:55] VITALS: BP 107/59; PULSE 88; RESP 16; TEMP 36.6; O2SAT 100
== END 2023-09-08 11:32 | disposition home or self-care (01) ==
LOC: MEDOUTP 11:31
PROVIDERS: Referring Provider Nurse Practitioner Women's Health; Visit Provider Nurse Practitioner Women's Health
DX: D64.9 Anemia, unspecified (principal)
CPT/HCPCS: 96365; 96366; J1756; J7050; A4216

== ENCOUNTER 2023-09-15 17:00 | Outpatient (CLI) | payer SELFPAY, OTHER ==
[2023-09-15 17:11] VITALS: BP 102/63; PULSE 100; O2SAT 99
[2023-09-15 17:12] VITALS: BMI 27.0
[2023-09-15 17:16] VITALS: PULSE 103; O2SAT 99
[2023-09-15 17:17] VITALS: TEMP 37.1
--- NOTE | 2023-09-15 22:47 | OB.TRI.PN ---
Progress Notes Date of Service: 09/15/23 Progress Note: Patient presents for triage evaluation secondary to decreased movement, feeling good movement now. FHT: 130 Moderate variability reactive few early decelerations category I tracing [place]: q3-5 Contractions- irritability, mild per patient Assessment and plan: decreased movement Reactive NST, reassuring maternal and status patient discharged to home to follow-up as scheduled. See problem list details for additional plan information. Charges/Coding Procedures Urinary/Genital 52xxx-59xxx: 11138-17 non-stress test Interp
== END 2023-09-15 18:35 | disposition home or self-care (01) ==
LOC: WPOUT 17:03 → WP 17:04
PROVIDERS: Referring Provider Obstetrics & Gynecology; Visit Provider Obstetrics & Gynecology
DX: O36.8190 Decreased fetal movements, unspecified trimester, not applicable or unspecified (principal); Z3A.00 Weeks of gestation of pregnancy not specified
CPT/HCPCS: 59025; 59050; 99221; G0378

== ENCOUNTER 2023-09-16 09:47 | Outpatient (CLI) | payer OTHER, SELFPAY ==
[2023-09-16 10:08] VITALS: BP 98/62; PULSE 91; RESP 16; TEMP 36.4; O2SAT 98; BMI 26.4
[2023-09-16] MEDS: 0.9% NaCl Peripheral Flush Adult/Peds IV (10:17)
[2023-09-16] MEDS: 0.9% NaCl IVPB Med Flush (250 mL) 15 ML IV (10:20)
[2023-09-16] MEDS: Iron Sucrose Complex 300 MG in 0.9% Normal Saline (250mL Bag) 250 ML 177 MG IV (10:20)
[2023-09-16 12:31] VITALS: BP 107/64; PULSE 91; RESP 16; TEMP 36.8; O2SAT 99
== END 2023-09-16 09:48 | disposition home or self-care (01) ==
LOC: MEDOUTP 09:48
PROVIDERS: Referring Provider Nurse Practitioner Women's Health; Visit Provider Nurse Practitioner Women's Health
DX: D64.9 Anemia, unspecified (principal)
CPT/HCPCS: 96365; 96366; J1756; J7050; A4216

== ENCOUNTER 2023-09-16 13:20 | Inpatient (IN) | payer SELFPAY, OTHER ==
[2023-09-16] VITALS (15 sets, daily range): BP systolic 92–120; BP diastolic 44–78; PULSE 61–119; RESP 14–20; TEMP 36.4–36.9; O2SAT 92–99; BMI 26.7
--- NOTE | 2023-09-16 | FALS_PTH ---
PATIENT: WILBUR ROMERO LOC: WP U#:[id number] AGE/SX: 28/F ROOM: WP006 RE09/16/[address]: Dr. Montse Harris MD : 1995 BED: 1 DIS: 09/18/2023 SPEC #: [id number] RECD: 09/16/23 16:41 STATUS: ROSALIO REByron #: [id number] DEENA: 09/16/23 00:[address]: Montse Harris DEPT: SURGICAL PATHOLOGY RECD BY: Alex Sibley ENTERED: 09/19/23 09:31 SP TYPE: FALL TUBES OTHR DR: No Primary Care Phys Tissues: Fallopian tube Procedures: Surgery Specimen Level II HEADER OPERATION: Tubal ligation PRE-OP DIAGNOSIS: Sterilization TISSUE SUBMITTED: Fallopian tubes MICROSCOPIC DIAGNOSIS Right and left fallopian tubes, bilateral salpingectomies: Two complete cross-sections of fallopian tubes with no pathologic change. AM:roger 09/21/2023 MICROSCOPIC DESCRIPTION Slides are reviewed. GROSS DESCRIPTION Received in fixative is one container labeled with the patient's name and designated bilateral fallopian tubes. The specimen consists of bilateral fallopian tubes including fimbrial ends measuring 7.0 cm in length and 1.0 cm in diameter and 8.0 cm in length and up to 1.0 cm in diameter. The fallopian tubes are not identified as right or left. Sections reveal unremarkable cut surfaces. Monotype Keyboard Operator sections are submitted in two cassettes with each cassette containing one fallopian tube. / ASHLEY:roger 09/19/2023 TC:4 CPT: 55712 x2
--- NOTE | 2023-09-16 14:03 | HP.PCM.OB_ITS ---
HPI - General General Date of Admission: 09/16/23 HPI Narrative WILBUR ROMERO, is a 28 F who presents with persistent decreased movement and variable decel on the FHT monitor. she denies any vb lof admits some irregular ctx. Maternal Data Information ROSA Calculator Estimated Delivery Date Method Current WG Current Estimate 09/25/23 Ultrasound #1 38w 5d Other Estimates 10/06/23 LMP (Certain) 37w 1d PFSH PFSH Medical History (Updated 09/16/23 @ 19:[address] Montse Harris MD) No significant past medical history Home Medications vitamin#30 30 mg iron-10 mg iron-folic acid 1 mg-omg3 capsule 4 tab PO DAILY 07/12/19 [History Last Taken 09/16/23 06:30 4 TAB] naproxen 500 mg tablet (Naprosyn) 500 mg PO BID PRN pain #30 tabs 09/16/23 [Rx Last Taken Unknown] oxycodone-acetaminophen 5 mg-325 mg tablet (Percocet) 1 tab PO Q6H PRN pain 7 days #10 tabs 09/16/23 [Rx Last Taken Unknown] Allergy/AdvReac Type Severity Reaction Status Date / Time No Known Allergies Allergy Verified 09/16/23 14:26 Surgical History (Updated 09/16/23 @ 19:[address] Montse Harris MD) H/O section Hx of tonsillectomy Social History adopted: No household members: family housing: house number of children: 2 current occupational status: unemployed current occupational exposures/hazards: No history of recent travel: No sexually active: Yes Smoking Status: Never smoker second hand exposure: No alcohol intake: never substance use type: does not use kartik/zoroastrianism: [facility] seatbelt use: always do you feel safe at home: Yes additional social history: [employer] working History 2 Elective abortions Hx Para 2 Spontaneous abortions Hx # Term Pregnancies 2 Ectopic pregnancies Hx # Pregnancies Multiple births # of living children 2 Past Pregnancies Del. Date Name GA/Weeks Outcome Route Bth Weight Infant Gen Labor Lgth Anesthesia Del Locatn Provider FOB Unknown [facility] 39 live - full term 6.1 Fema le spinal Tabatha Peña 12/25/19 Avah live - full term Female indio perdomo [facility] Dr. Montse Harris Delivery Date: Last Updated by: Neelam Esqueda decels; induced for SGA Delivery Date: 12/25/19 Last Updated by: Michelle Lau RLTCS Visit Details Expected Delivery Route/Plan repeat [id number] Plans Covid status: declined Flu vaccine: declined Tdap vaccine: delcined Rhogam: declined LARC form signed: declined Problem list reviewed and updated with the most current plan of care details and appropriate orders placed. Relevant counseling for the gestational age provided. Continue routine care and follow up unless otherwise noted in visit notes/problem list details OB Flowsheet Initial Weight: Not Recorded Date -?-?-?-?-?-?-?-?-?-?-?-?- EGA Weight BP Urine Prot -?-?-?-?-?-?-?-?-?-?-?-?- Glucose FHR FuHt Pres Dilation -?-?-?-?-?-?-?-?-?-?-?-?- Effaced St Visit Note 03/10/23 -?-?-?-?-?-?-?-?-?-?-?-?- 11w 4d 120 lb 2 oz 106/70 -?-?-?-?-?-?-?-?-?-?-?-?- 170 -?-?-?-?-?-?-?-?-?--?-?-?- JV- CRL not cons istent with LMP. rosa 09/25/23, wants rpt section and nipt. 04/08/23 -?-?-?-?-?-?-?-?-?-?-?-?- 15w 5d 123 lb 100/69 -?-?-?--?-?-?-?-?-?-?-?-?- 150 -?-?-?-?-?-?-?-?-?-?-?-?- JV- pt decided a gainst the NIPT due to cost. no complaints today. She is starting to feel some movement. 05/05/23 -?-?-?-?-?-?-?-?-?-?-?-?- 19w 4d 126 lb 6 oz 108/71 Nega tive -?-?-?-?-?-?-?-?-?-?-?-?- Negative 139 -?-?-?-?-?-?-?-?-?-?-?-?- JV- formal anato my scan pending from today. She states that the tech told her she is measuring closer to what her lmp was. will wait on formal results and updated ROSA if appropriate. 05/30/23 -?-?-?-?-?-?-?-?-?-?-?-?- 23w 1d 132 lb 113/70 Negative -?-?-?-?-?-?-?-?-?-?-?-?- Negative 137 -?-?-?-?-?-?-?-?-?-?-?-?- LC- no vb/ctx/lo f. good fm. LC- no vb/ctx/lof. good fm. EVP OF [employer] otherwise normal anatomy scan. to obtain 28 week labs, orders placed. 06/27/23 -?-?-?-?-?-?-?-?-?-?-?-?- 27w 1d 137 lb 8 oz 105/65 Nega tive -?-?-?-?-?-?-?-?-?-?-?-?- Negative 145 27 Cephalic -?-?-?-?-?-?-?-?-?-?-?-?- JV- pt did gluco la today. declines flu vaccine. will return next week for rhogam. 07/19/23 -?-?-?-?-?-?-?-?-?-?-?-?- 30w 2d 141 lb 8 oz 115/64 Nega tive -?-?-?-?-?-?-?-?-?-?-?-?- Negative 135 30 -?-?-?-?-?-?-?-?-?-?-?-?- KW-no vb/lof/ctx . good fm. tdap today. rhogam 07/04. Plans tubal with C/S. KW-no vb/lof/ctx. good fm. t dap today. rhogam 07/04. Plans tubal with C/S. Mess age sent to triage nurses to schedule C/S 08/03/23 -?-?-?-?-?-?-?-?-?-?-?-?- 32w 3d 145 lb 6 oz 116/71 Nega tive -?-?-?-?-?-?-?-?-?-?-?-?- Negative 145 32 -?-?-?-?-?-?-?-?-?-?-?-?- JV- no lof, vagi nal bleeding, or dec fm. 08/18/23 -?-?-?-?-?-?-?-?-?-?-?-?- 34w 4d 145 lb 4 oz 114/70 -?-?-?--?-?-?-?-?-?-?-?-?- 145 34 -?-?-?-?-?-?-?-?-?-?-?-?- SM- no vb lof go od fm n oregular ctx discussed anemia ordered cbc discussed IV iron if not improved 09/01/23 -?-?-?-?-?-?-?-?-?-?-?-?- 36w 4d 148 lb 148 lb 105/68 -?-?-?-?-?-?-?-?-?-?-?-?- 140 36 Cephalic -?-?-?-?-?-?-?-?-?-?-?-?- SM no vb lof goo d fm no regular ctx gbs done starting IV venofer today 09/08/23 -?-?-?-?-?-?-?-?-?-?-?-?- 37w 4d 149 lb 6 oz 105/68 Nega tive -?-?-?-?-?-?-?-?-?-?-?-?- Negative 140 36 Cephalic -?-?-?-?-?-?-?-?-?-?-?-?- SM- no vb lof go od fm no regualr ctx NST FHR Rate Baby A Baseline: 140 Variability:: Moderate ROS Constitutional Constitutional: Reports systems reviewed and no addt'l complaints, except as documented ENT HEENT: Reports systems reviewed and no addt'l complaints, except as documented Cardiovascular Cardiovascular: Reports systems reviewed and no addt'l complaints, except as documented Respiratory/Chest Respiratory/Chest: Reports systems reviewed and no addt'l complaints, except as documented Gastrointestinal Gastrointestinal: Reports systems reviewed and no addt'l complaints, except as documented and nausea; Denies abdominal pain Genitourinary Genitourinary: Reports systems reviewed and no addt'l complaints, except as documented, contractions Details: present and frequency (regular ) and movement Details: present Musculoskeletal Musculoskeletal: Reports systems reviewed and no addt'l complaints, except as documented Integumentary Integumentary: Reports as per HPI Neurologic Neurologic: Reports systems reviewed and no addt'l complaints, except as documented Endocrine Endocrinology: Reports systems reviewed and no addt'l complaints, except as documented Vital Signs Vital Signs Vital Signs: 09/16/23 13:38 09/16/23 13:38 Pulse Rate 98 Blood Pressure 120/71 BP Systolic 120 BP Diastolic 71 Weight Weight: 151 lb Body Mass Index (BMI) 26.7 Physical Exam Const alert, oriented x3 and healthy appearing Constitutional Narrative: uncomfortable with contractions HEENT normocephalic and moist oral mucous membranes Head and Scalp: atraumatic Neck full ROM, no lymphadenopathy, supple and thyroid normal General: trachea midline Thyroid: thyroid normal Lymph Lymphatic: no lymphadenopathy noted Chest inspection of chest normal Resp normal respiratory effort Cardio regular rate GI normal to inspection, nondistended, normoactive bowel sounds, soft to palpation and non-tender Inspection: gravid external exam normal Bimanual Exam - Vag & Uterus: uterus non-tender Manual OB Exam: estimated gestational size appropriate, presentation cephalic, dilated, effaced and station Extremity normal to inspection General Extremity: Negative for edema Skin no rashes or lesions noted Neuro deep tendon reflexes 2+ bilaterally Motor Exam: strength 5/5 throughout and clonus absent Psych mental status grossly normal Labs Labs Labs: Blood Type A NEGATIVE Antibody Screen NEGATIVE Hct 31.0 % (37-47) L Hgb 9.4 g/dL (12.0-15.0) L Obstetrics Ultrasound Syphilis Total Ab Non-reactive Rubella IgG Antibody Reactive (Nonreactive) Hep Bs Antigen Non-Reactive (Nonreactive) Hepatitis C Antibody Non-Reactive (Nonreactive) Chlamydia DNA (EBONIE) Negative (Negative) N.gonorrhoeae DNA (EBONIE) Negative (Negative) HIV 1&2 Antibody Non-Reactive (Nonreactive) Glucose 1 Hr 50 gm 90 mg/dL (70-140) Rhogam given: No Assessment & Plan (1) Supervision of normal : COMMENT: PRR ROSA 09/25/23 girl PemaCaleb Lee : Melanie, RC/S scheduled 09/19/23 (2) Rh negative state in antepartum period: COMMENT: rhogam at 28 wk, pp and prn bleeding (3) : QUALIFIERS: Weeks of gestation: 38 weeks Qualified Code(s): Z3A.38 - 38 weeks gestation of COMMENT: GBS Negative, 03/18 NIPT awaiting pt to pay before can run test, carrier and ntd screen declined. anatomy nl. (4) History of : COMMENT: First csection for decels, SGA. (5) Contraceptive management: COMMENT: desires intrapartum tubal ligation during (6) Anemia affecting : COMMENT: start on iron supplement. (7) Decreased movements in third trimester: (8) Variable heart rate decelerations, antepartum: PLAN: Plan admit for rltcs and bs
[2023-09-16] MEDS: Lactated Ringers 1,000 ML 999 ML IV (14:12)
[2023-09-16] MEDS: Acetaminophen 500 MG Tablet 1000 MG PO ×2 (14:14→20:18)
[2023-09-16 14:20] LABS: Absolute Lymphocyte Count 1.27 X10^3/uL (0.83-4.51); Absolute Neutrophil Count 6.2 X10^3/uL (2.0-7.7); Basophil# 0.05 X10^3/uL; Basophil% 0.6 % (0-1); Eosinophil# 0.05 X10^3/uL; Eosinophils% 0.6 % (0-5); Hemoglobin 9.4 g/dL (12.0-15.0); Lymphocyte # 1.27 X10^3/ul (0.83-4.51); Lymphocyte % 15.7 % (19-41); Mean Corp Hgb Conc 30.3 g/dL (32-36); Mean Corpuscular Hgb 24.8 pg (27.0-32.0); Mean Corpuscular Volume 81.8 fL (81-99); Mean Platelet Vol. 9.9 fl (6.2-12.0); Monocyte# 0.44 X10^3/uL; Monocyte% 5.4 % (0-10); NRBC Flagged by Analyzer 0 % (0-5); Neutrophil # 6.18 X10^3/uL (2.7-7.7); Neutrophil % 76.3 % (47-70); POSITIVE MORPHOLOGY YES; Platelet Count 222 K/mm3 (150-450); RBC Distribution Width CV 21.1 % (11.6-14.6); RBC Distribution Width SD 57.7 fl (35.1-43.9); Red Blood Count 3.79 M/mm3 (4.2-5.4); White Blood Count 8.1 K/mm3 (4.4-11.0)
[2023-09-16] MEDS: Sodium Citrate/Citric Acid 30 ML UDC PO (14:21)
[2023-09-16 14:23] LABS: Differential Indicated SCAN CRITERIA MET
[2023-09-16 14:34] LABS: Anisocytosis 2+
[2023-09-16] MEDS: Cefazolin 2 GM in 0.9% Normal Saline (100mL Bag) 100 ML IV (14:36)
[2023-09-16] MEDS: Methylergonovine 0.2 MG/ML Ampul IM (15:08)
[2023-09-16 15:14] LABS: Syphilis Antibodies Non-reactive
[2023-09-16] MEDS: Oxytocin 15 Units/NS 250ml 15 UNITS/250 ML IV.SOLN 83 UNITS IV (16:00)
[2023-09-16] MEDS: Ketorolac 30 MG/ML Syringe IV ×2 (16:19→22:56)
[2023-09-16 16:40] LABS: Pathology Specimen OB SEE PATHOLOGY REPORT
--- NOTE | 2023-09-16 18:28 | OP.PCM_ITS ---
Assessment & Plan (1) Anemia affecting : COMMENT: start on iron supplement. (2) Contraceptive management: COMMENT: desires intrapartum tubal ligation during (3) Rh negative state in antepartum period: COMMENT: rhogam at 28 wk, pp and prn bleeding (4) : QUALIFIERS: Weeks of gestation: 38 weeks Qualified Code(s): Z3A.38 - 38 weeks gestation of COMMENT: GBS Negative, 03/18 NIPT awaiting pt to pay before can run test, carrier and ntd screen declined. anatomy nl. (5) Supervision of normal : COMMENT: PRR ROSA 09/25/23 girl Pema KALLIE LouiseCaleb : Melanie, RC/S scheduled 09/19/23 (6) History of : COMMENT: First csection for decels, SGA. Maternal Data Information ROSA Calculator Estimated Delivery Date Method Current WG Current Estimate 09/25/23 Ultrasound #1 38w 5d Other Estimates 10/06/23 LMP (Certain) 37w 1d Final ROSA Source: LMP Details Operative Information Pre-Operative Diagnosis: Previous Post-Operative Diagnosis: same Indications for : Repeat Elective Indications Narrative: Surgeon: Montse Harris MD Classification: Scheduled Procedure Type: low transverse Type of Anesthesia: Spinal Special Medications: none Antibiotic Given: Ancef 2 grams IV x1 Drain: Morejon to straight drain Fluids Replaced: crystalloid Procedure Start Time: 14:24 Procedure Stop Time: 15:44 Findings Description of Procedure: Spinal anesthesia was placed without difficulty. Morejon catheter was placed. The patient was placed in the dorsal supine position with leftward tilt. Patient was prepped and draped in the normal sterile fashion. Pfannenstiel skin incision was made with the scalpel and carried through to the underlying layer of fascia with the scalpel. Fascia was nicked in the midline and the incision extended laterally. The rectus bellies were dissected off superiorly and inferiorly with out complication both sharply and bluntly. The peritoneum was entered digitally. The incision was stretched and a low transverse uterine incision was made with the scalpel. The infant's head was delivered atraumatically followed by the anterior and posterior shoulders without complication the rest of the infant delivered. The cord was clamped and cut and the was handed off to awaiting nurse. The placenta was delivered spontaneously immediately following and was noted to be intact and have a three- vessel cord. The uterus was exteriorized cleared of all clots and debris, and the incision was closed in a single layer closure using #1 Monocryl. additional figure of eight sutures used for hemostasis. Patient had desired sterilization and was counseled preoperatively regarding irreversibility and permanency. Therefore bilateral fallopian tubes were elevated and transected across using a LigaSure device starting proximally to distally without complication the entire fallopian tubes were removed. The ovaries and fallopian tubes were noted to be within normal limits. The uterus was returned to the maternal abdomen and gutters were cleared of all clots and debris. The peritoneum was closed with 3-0 Monocryl in a running fashion. Fascia was closed with 0 PDS in a running fashion. Subcutaneous tissue was copiously irrigated and the skin was closed with 3-0 Monocryl in a subcuticular fashion. Mepilex dressing was applied without complication. Patient was taken to recovery in stable condition. Amniotic Membrane Rupture Type: Artificial Amniotic Fluid Description: Clear Placenta Disposition: [facility] Cord Vessel Description: 3 Vessels Delayed Cord Clamping: Yes Complications Risks of Surgery Discussed w/Patient: Bleeding, Infection, Need for Future C- Sections and Injury to surrounding structure(s) including bowel and bladder Vaginal Delivery Complication Complications: None Admit VTE Documentation VTE Present on Admission: No VTE Mechan Device Prophylaxis: SCD's Procedures Urinary/Genital 52xxx-59xxx: [id number] [facility]
--- NOTE | 2023-09-16 19:31 | DCINST_ITS ---
Discharge Instructions Diet Discharge Diet: No restrictions Activity Discharge Activity: May Not Drive (for 2 weeks or while taking narcotic pain medications.), May Shower and May Take a Tub Bath (in 7 days) May shower in (days): 0 May resume sexual activity in: 4-6 weeks Weight Bearing Status: Full weight bearing Lifting Restrictions: 20 pounds Dressing / Incision Call your doctor if your incision/area has: Continuous Slow Oozing, Sudden Increased Bleeding, Increased Pain/ Swelling, Increased Redness and Foul Smelling Discharge Call your doctor if you observe: Fever of 101 or Higher and Using more than 1 pad per hour (for 2 hours) Suture Line Care: Avoid Pulling/Pushing and Avoid Pinching/Bending Cleanse incision/area with: Soap & Water and Keep Dressing Clean & Dry Follow Up Care Please Follow Up With: Montse Harris MD When: Call [phone] to make an appointment for an incision check in 1-2 weeks. Test Results: Test results from this visit will be discussed in further detail at your follow- up appointment, if applicable. Discharge Plan Admission Admit Date/Time: 09/16/23 13:20 Attending Provider: Montse Harris Primary Care Provider: Care PhysicianChery Primary Discharge Orders/Prescriptions Prescriptions: New oxycodone-acetaminophen [Percocet] 5-325 mg tablet 1 tab PO Q6H PRN (Reason: pain) 7 Days Qty: 10 0RF naproxen [Naprosyn] 500 mg tablet 500 mg PO BID PRN (Reason: pain) Qty: 30 0RF No Action vitamin#30 30 mg iron-10 mg iron-folic acid 1 mg-omg3 capsule 30 mg iron-10 mg iron-1 mg capsule 4 tab PO DAILY Referrals / Follow Up: Care PhysicianChery Primary [Primary Care Provider] - Disposition Disposition (needs filled in before D/C Order can be placed): Home, Self Care
[2023-09-16] MEDS: Lactated Ringers 1,000 ML 100 ML IV (19:40)
[2023-09-16 20:59] LABS: Absolute Lymphocyte Count 1.73 X10^3/uL (0.83-4.51); Absolute Neutrophil Count 8.6 X10^3/uL (2.0-7.7); Basophil# 0.04 X10^3/uL; Basophil% 0.4 % (0-1); Eosinophil# 0.04 X10^3/uL; Eosinophils% 0.4 % (0-5); Hematocrit 30.3 % (37-47); Hemoglobin 9.6 g/dL (12.0-15.0); Lymphocyte # 1.73 X10^3/ul (0.83-4.51); Lymphocyte % 15.7 % (19-41); Mean Corp Hgb Conc 31.7 g/dL (32-36); Mean Corpuscular Hgb 25.9 pg (27.0-32.0); Mean Corpuscular Volume 81.7 fL (81-99); Mean Platelet Vol. 10.1 fl (6.2-12.0); Monocyte# 0.58 X10^3/uL; Monocyte% 5.2 % (0-10); NRBC Flagged by Analyzer 0 % (0-5); Neutrophil % 77.8 % (47-70); POSITIVE MORPHOLOGY YES; Platelet Count 196 K/mm3 (150-450); RBC Distribution Width SD 57.9 fl (35.1-43.9); Red Blood Count 3.71 M/mm3 (4.2-5.4); White Blood Count 11.1 K/mm3 (4.4-11.0)
[2023-09-16 21:06] LABS: Differential Indicated SCAN CRITERIA MET
[2023-09-16 21:17] LABS: Anisocytosis RARE; Microcytosis RARE; Platelet Estimate ADEQUATE (ADEQ)
--- NOTE | 2023-09-16 22:01 | NURSING ---
duramorph intervention not added on this pt. this RN to contact anesthesia for orders.
[2023-09-17] VITALS (7 sets, daily range): BP systolic 92–105; BP diastolic 54–63; PULSE 64–79; RESP 14–20; TEMP 36.1–36.6; O2SAT 96–98
[2023-09-17] MEDS: Acetaminophen 500 MG Tablet 1000 MG PO ×4 (02:16→20:54)
[2023-09-17] MEDS: Ketorolac 30 MG/ML Syringe IV ×2 (04:54→10:11)
[2023-09-17 05:23] LABS: Hematocrit 29.5 % (37-47); Hemoglobin 8.9 g/dL (12.0-15.0); Mean Corp Hgb Conc 30.2 g/dL (32-36); Mean Corpuscular Volume 82.9 fL (81-99); Mean Platelet Vol. 9.8 fl (6.2-12.0); POSITIVE MORPHOLOGY YES; Platelet Count 192 K/mm3 (150-450); RBC Distribution Width CV 21.2 % (11.6-14.6); RBC Distribution Width SD 61.2 fl (35.1-43.9); Red Blood Count 3.56 M/mm3 (4.2-5.4); White Blood Count 9.3 K/mm3 (4.4-11.0)
[2023-09-17 06:30] LABS: Scan Indicated on CBC? Y/N YES- FLAGS NOTED
--- NOTE | 2023-09-17 08:46 | PCM.PN.OB ---
Subjective Subjective Patient doing well without complaints. Tolerating PO. Ambulating and voiding without difficulty. feeding well. Denies chest pain, shortness of breath, calf pain/swelling, fevers, chills, lightheadedness. Objective Data Objective Data Vital Signs: Vital Signs Temp Pulse Resp BP Pulse Ox O2 Del Method 97.6 F L 74 16 92/54 L 98 Room Air 09/17/23 08:00 09/17/23 08:00 09/17/23 08:00 09/17/23 08:00 09/17/23 04:57 09/17/23 04:57 Oxygen Delivery Method Room Air Weight: 151 lb Body Mass Index (BMI) 26.7 Intake & Output: Intake and Output for Last 24 Hours 09/15/23 09/16/23 09/17/23 23:59 23:59 23:59 Intake Total 1509.6 / 1509.6 1923.33 / 1923.33 Output Total 1950 / 1950 1200 / 1200 Balance -440.4 / -440.4 723.33 / 723.33 Lab / Micro Data 09/17/23 05:08 Labs: Laboratory Results - last 24 hr 09/16/23 14:12: WBC 8.1, RBC 3.79 L, Hgb 9.4 L, Hct 31.0 L, MCV 81.8, MCH 24.8 L, MCHC 30.3 L, RDW Std Deviation 57.7 H, RDW Coeff of [place] 21.1 H, Plt Count 222, MPV 9.9, Immature Gran % (Auto) 1.400 H, Neut % (Auto) 76.3 H, Lymph % (Auto) 15.7 L, Dickson % (Auto) 5.4, Eos % (Auto) 0.6, Baso % (Auto) 0.6, Absolute Neuts (auto) 6.2, Absolute Lymphs (auto) 1.27, Nucleated RBC % 0, Anisocytosis 2+, Syphilis Total Ab Non-reactive, Blood Type A NEGATIVE, Antibody Screen NEGATIVE, Crossmatch See Detail 09/16/23 20:50: WBC 11.1 H, RBC 3.71 L, Hgb 9.6 L, Hct 30.3 L, MCV 81.7, MCH 25.9 L, MCHC 31.7 L, RDW Std Deviation 57.9 H, RDW Coeff of [place] 21.0 H, Plt Count 196, MPV 10.1, Immature Gran % (Auto) 0.500, Neut % (Auto) 77.8 H, Lymph % (Auto) 15.7 L, Dickson % (Auto) 5.2, Eos % (Auto) 0.4, Baso % (Auto) 0.4, Absolute Neuts (auto) 8.6 H, Absolute Lymphs (auto) 1.73, Nucleated RBC % 0, Platelet Estimate ADEQUATE, Anisocytosis RARE, Microcytosis RARE 09/17/23 05:08: WBC 9.3, RBC 3.56 L, Hgb 8.9 L, Hct 29.5 L, MCV 82.9, MCH 25.0 L, MCHC 30.2 L, RDW Std Deviation 61.2 H, RDW Coeff of [place] 21.2 H, Plt Count 192, MPV 9.8 ROS Constitutional Constitutional: Reports systems reviewed and no addt'l complaints, except as documented Cardiovascular Cardiovascular: Reports systems reviewed and no addt'l complaints, except as documented Respiratory/Chest Respiratory/Chest: Reports systems reviewed and no addt'l complaints, except as documented Gastrointestinal Gastrointestinal: Reports systems reviewed and no addt'l complaints, except as documented Physical Exam Const alert, oriented x3 and no apparent distress HEENT Head and Scalp: atraumatic Resp normal respiratory effort GI soft to palpation and non-tender Inspection: incision intact, healing well and drainage (none) Bimanual Exam - Vag & Uterus: uterus non-tender Uterus Palpation: uterus fundus firm (below Umbilicus) Assessment & Plan (1) delivery delivered: COMMENT: TEAGAN 38 dec fm girl Pema PLAN: Plan s/p LTCS PPD # 1 1. routine post care 2. breast feeding- support given 3. anemia- unit held IVFs given, patient doing well will not transfuse counts stable, borderline hypotension continue oral hydration with PRN IVF bolus 4. rubella immune
[2023-09-17] MEDS: Lactated Ringers 1,000 ML 999 ML IV (09:00)
[2023-09-17] MEDS: Senna/Docusate Sodium 1 Tablet PO (10:12)
[2023-09-17] MEDS: Naproxen 500 MG Tablet PO (16:15)
[2023-09-18] MEDS: Naproxen 500 MG Tablet PO ×2 (00:41→08:56)
[2023-09-18 02:00] VITALS: BP 98/56; PULSE 80; RESP 16; TEMP 36.3; O2SAT 96
[2023-09-18] MEDS: Acetaminophen 500 MG Tablet 1000 MG PO ×2 (02:37→08:56)
[2023-09-18 08:30] VITALS: BP 96/64; PULSE 85; RESP 16; TEMP 36.6; O2SAT 96
--- NOTE | 2023-09-18 08:42 | PCM.PN.OB ---
Subjective Subjective Patient doing well without complaints. Tolerating PO. Ambulating and voiding without difficulty. feeding well. Denies chest pain, shortness of breath, calf pain/swelling, fevers, chills, lightheadedness. Objective Data Objective Data Vital Signs: Vital Signs Temp Pulse Resp BP Pulse Ox O2 Del Method 97.4 F L 80 16 98/56 L 96 Room Air 09/18/23 02:00 09/18/23 02:00 09/18/23 02:00 09/18/23 02:00 09/18/23 02:00 09/18/23 02:00 Oxygen Delivery Method Room Air Weight: 151 lb Body Mass Index (BMI) 26.7 Intake & Output: Intake and Output for Last 24 Hours 09/16/23 09/17/23 09/18/23 23:59 23:59 23:59 Intake Total 1509.6 / 1509.6 2923.33 / 2923.33 Output Total 1950 / 1950 1600 / 1600 Balance -440.4 / -440.4 1323.33 / 1323.33 Lab / Micro Data 09/17/23 05:08 ROS Constitutional Constitutional: Reports systems reviewed and no addt'l complaints, except as documented Cardiovascular Cardiovascular: Reports systems reviewed and no addt'l complaints, except as documented Respiratory/Chest Respiratory/Chest: Reports systems reviewed and no addt'l complaints, except as documented Gastrointestinal Gastrointestinal: Reports systems reviewed and no addt'l complaints, except as documented Physical Exam Const alert, oriented x3 and no apparent distress HEENT Head and Scalp: atraumatic Resp normal respiratory effort GI soft to palpation and non-tender Inspection: incision intact, healing well and drainage (none) Bimanual Exam - Vag & Uterus: uterus non-tender Uterus Palpation: uterus fundus firm (below Umbilicus) Assessment & Plan (1) delivery delivered: COMMENT: RLTCS SM 38 dec fm girl Pema PLAN: Plan s/p LTCS PPD # 2 1. routine post care 2. breast feeding- support given 3. rh positive 4. rubella immune
[2023-09-18] MEDS: oxyCODONE 5 MG Tablet PO (08:57)
[2023-09-18] MEDS: Senna/Docusate Sodium 1 Tablet PO (09:37)
== END 2023-09-18 12:25 | disposition home or self-care (01) | DRG 785 ==
PROVIDERS: Admitting Provider Obstetrics & Gynecology; Referring Provider Obstetrics & Gynecology; Visit Provider Obstetrics & Gynecology
DX: O76 Abnormality in fetal heart rate and rhythm complicating labor and delivery (principal); O26.893 Other specified pregnancy related conditions, third trimester; Z67.11 Type A blood, Rh negative; O34.211 Maternal care for low transverse scar from previous cesarean delivery; O36.5930 Maternal care for other known or suspected poor fetal growth, third trimester, not applicable or unspecified; O36.8130 Decreased fetal movements, third trimester, not applicable or unspecified; O99.02 Anemia complicating childbirth; Z37.0 Single live birth; Z3A.38 38 weeks gestation of pregnancy; Z87.59 Personal history of other complications of pregnancy, childbirth and the puerperium
CPT/HCPCS: 59025; 59050; 85025; 85027; 86780; 86850; 86900; 86901; 86920; 88302; 99221; J7120; G0378; J2405

== ENCOUNTER → 2023-10-31 | Outpatient (CLI) | payer OTHER, SELFPAY ==
[2023-10-31 11:13] LABS: Absolute Lymphocyte Count 1.79 X10^3/uL (0.83-4.51); Absolute Neutrophil Count 3.6 X10^3/uL (2.0-7.7); Basophil# 0.07 X10^3/uL; Basophil% 1.2 % (0-1); Eosinophil# 0.19 X10^3/uL; Eosinophils% 3.1 % (0-5); Hematocrit 40.6 % (37-47); Hemoglobin 12.4 g/dL (12.0-15.0); Lymphocyte # 1.79 X10^3/ul (0.83-4.51); Lymphocyte % 29.4 % (19-41); Mean Corp Hgb Conc 30.5 g/dL (32-36); Mean Corpuscular Hgb 25.8 pg (27.0-32.0); Mean Corpuscular Volume 84.4 fL (81-99); Mean Platelet Vol. 9.1 fl (6.2-12.0); Monocyte# 0.36 X10^3/uL; Monocyte% 5.9 % (0-10); NRBC Flagged by Analyzer 0 % (0-5); Neutrophil # 3.64 X10^3/uL (2.7-7.7); Neutrophil % 59.9 % (47-70); Platelet Count 262 K/mm3 (150-450); RBC Distribution Width CV 19.7 % (11.6-14.6); RBC Distribution Width SD 59.7 fl (35.1-43.9); Red Blood Count 4.81 M/mm3 (4.2-5.4); White Blood Count 6.1 K/mm3 (4.4-11.0)
== END | disposition home or self-care (01) ==
LOC: PAVLAB 10:31
PROVIDERS: Referring Provider Obstetrics & Gynecology; Visit Provider Obstetrics & Gynecology
DX: D64.9 Anemia, unspecified (principal)
CPT/HCPCS: 36415; 85025